=== PATIENT | female | born 1985 | race Caucasian/White ===

== ENCOUNTER 2017-10-06 14:57 | Emergency (ER) | payer SELFPAY ==
[2017-10-06 16:05] VITALS: BP 108/67
--- NOTE | 2017-10-06 16:17 | UC ---
Dental HPI - HPI Summary HPI Summary: Pt presents with fractured tooth. She tells me that she was eating a hard candy earlier today and she bit down on it on the left side of her mouth. She felt one of her lower teeth crack and had immediate pain. She called her dentist and they cannot see her until Wednesday 10/10. Has not been able to eat or drink due to pain. Has tried ibuprofen without relief. - History of Current Complaint Chief Complaint: UCDentalProblem Stated Complaint: DENTAL ISSUE Time Seen by Provider: 10/06/17 16:13 Hx Obtained From: Patient Hx Last Menstrual Period: last week Onset/Duration: Sudden Onset Severity: Severe Pain Intensity: 8 Pain Scale Used: 0-10 Numeric - Allergies/Home Medications Allergies/Adverse Reactions: Allergies Allergy/AdvReac Type Severity Reaction Status Date / Time No Known Allergies Allergy Verified 10/06/17 16:05 PMH/Surg Hx/FS Hx/Imm Hx Previously Healthy: Yes - Surgical History Surgical History: Yes Surgery Procedure, Year, and Place: right ear. Lasik eye surgery - Family History Known Family History: Positive: None - Social History Alcohol Use: None Substance Use Type: None Smoking Status (MU): Light Every Day Tobacco Smoker Type: eCigarettes Amount Used/How Often: 1 pack per day Length of Time of Smoking/Using Tobacco: since age 15 yo - Immunization History Most Recent Influenza Vaccination: unknown Review of Systems Constitutional: Negative Skin: Negative ENT: Dental Pain Respiratory: Negative Cardiovascular: Negative All Other Systems Reviewed And Are Negative: Yes Physical Exam Triage Information Reviewed: Yes Appearance: Well-Nourished, Pain Distress Vital Signs: Initial Vital Signs Temp 98.8 F 10/06/17 16:00 Pulse 100 10/06/17 16:00 Resp 18 10/06/17 16:00 BP 108/67 10/06/17 16:00 Pulse Ox 100 10/06/17 16:00 Vital Signs Reviewed: Yes ENT: Positive: Dental tenderness Dental: Positive: Percussion Tenderness @ - tooth 18, Dental Fracture @ - tooth 18. Negative: Gross Decay/Caries @, Abscess @, Cellulitis @, Bleeding Neck: Positive: Supple, Nontender, No Lymphadenopathy Respiratory: Positive: Chest non-tender, Lungs clear, Normal breath sounds, No respiratory distress, No accessory muscle use Cardiovascular: Positive: RRR, No Murmur, Pulses Normal Neurological: Positive: Alert Psychological: Positive: Age Appropriate Behavior Dental Complaint Course/Dx - Course Course Of Treatment: iSTOP checked and ok. Seeing dentist friday. Fractured tooth 18 - Differential Dx/Diagnosis Differential Diagnosis/Dx: Fractured Tooth Provider Diagnoses: Fractured tooth #18 Discharge - Discharge Plan Condition: Stable Disposition: HOME Prescriptions: HYDROcodone/ACETAMIN 5-325 MG* [Beaumont 5-325 TAB*] 1 tab PO Q12H PRN #8 tab MDD 2 PRN Reason: Pain Patient Education Materials: Acute Dental Trauma (ED) Forms: *Work Release Referrals: Monik Vick NP [Primary Care Provider] - Additional Instructions: If you develop a fever, SOB, chest pain, new or worsening symptoms - please call your PCP or go to the ED. Keep your appointment with dentist on wednesday 10/10
== END 2017-10-06 16:32 | disposition home or self-care (01) ==
LOC: UCCORT 14:57
DX: S02.5XXA Fracture of tooth (traumatic), initial encounter for closed fracture (principal); X58.XXXA Exposure to other specified factors, initial encounter; Y93.89 Activity, other specified; Y92.9 Unspecified place or not applicable; F17.210 Nicotine dependence, cigarettes, uncomplicated
CPT/HCPCS: 99212; G0463

== ENCOUNTER 2018-01-20 10:06 | Emergency (ER) | payer SELFPAY ==
[2018-01-20 10:53] VITALS: BP 101/73
--- NOTE | 2018-01-20 11:02 | UC ---
General HPI - HPI Summary HPI Summary: PT IS C/O BEING ILL FOR A WEEK. IT BEGAN WITH FLU TYPE SYMPTOMS AND INVOLVED SINUS CONGESTION, SORE THROAT AND CHEST CONGESTION. EVERYTHING SEEMED TO IMPROVE EXCEPT HER SINUSES. SHE HAS ONGOING SINUS CONGESTION AND NOW PAIN/ PRESSURE IN SINUSES WITH YELLOW DRAINAGE. PT ALSO C/O SNEEZING, WATERY EYES AND ADMITS TO SUBJECTIVE FEVER. SHE DENIES HX ALLERGIES AND ANY NEW EXPOSURES. - History of Current Complaint Chief Complaint: UCRespiratory Stated Complaint: FLU SYMPTOMS/SINUS Time Seen by Provider: 01/20/18 10:55 Hx Obtained From: Patient Hx Last Menstrual Period: 01/06/18 Onset/Duration: Gradual Onset Timing: Constant Pain Intensity: 7 Aggravating: NOTHING Alleviating: NOTHING Associated Signs & Symptoms: Positive: Cough. Negative: Headache - Allergy/Home Medications Allergies/Adverse Reactions: Allergies Allergy/AdvReac Type Severity Reaction Status Date / Time No Known Allergies Allergy Verified 01/20/18 10:47 Home Medications: Home Medications Equate Cold And Cough Q4H PRN 01/20/18 [History] PMH/Surg Hx/FS Hx/Imm Hx Previously Healthy: Yes - Surgical History Surgical History: Yes Surgery Procedure, Year, and Place: right ear. Lasik eye surgery - Family History Known Family History: Positive: None - Social History Occupation: Employed Full-time Alcohol Use: None Substance Use Type: None Smoking Status (MU): Heavy Every Day Tobacco Smoker Type: eCigarettes Amount Used/How Often: 1/2 pack per day Length of Time of Smoking/Using Tobacco: since age 15 yo - Immunization History Most Recent Influenza Vaccination: unknown Vaccination Up to Date: Yes Review of Systems Constitutional: Negative Skin: Negative Eyes: Negative ENT: Nasal Discharge, Sinus Congestion, Sinus Pain/Tenderness Respiratory: Cough Cardiovascular: Negative Gastrointestinal: Negative Genitourinary: Negative Motor: Negative Neurovascular: Negative Musculoskeletal: Negative Neurological: Headache Psychological: Negative Is Patient Immunocompromised?: No All Other Systems Reviewed And Are Negative: Yes Physical Exam Triage Information Reviewed: Yes Appearance: Well-Appearing Vital Signs: Initial Vital Signs Temp 99.1 F 01/20/18 10:48 Pulse 114 01/20/18 10:48 Resp 18 01/20/18 10:48 BP 101/73 01/20/18 10:48 Pulse Ox 100 01/20/18 10:48 Eyes: Positive: Conjunctiva Clear ENT: Positive: Pharynx normal, Nasal congestion, Nasal drainage - YELLOW, TMs normal, Sinus tenderness Neck: Positive: Supple, Nontender, No Lymphadenopathy Respiratory: Positive: Lungs clear, Normal breath sounds Cardiovascular: Positive: RRR, No Murmur Abdomen Description: Positive: Nontender, No Organomegaly, Soft Bowel Sounds: Positive: Present Musculoskeletal: Positive: ROM Intact Neurological: Positive: Alert Psychological: Positive: Age Appropriate Behavior Skin Exam: Normal Course/Dx - Course Course Of Treatment: ILL X 7 DAYS, WORSENING SINSU S/S'S, SUBJECTIVE FEVER, NO CURRENT DIARRHEA. WILL TX FOR PRESUMPTIVE BACTERIAL SINUSITIS. DOUBT ALLERGY COMPONENT BUT ILL ADD FLONASE TO BENEFIT SINUSES AND ANY POTENTIAL ALLERGY COMPONENT. - Differential Dx - Multi-Symptom Provider Diagnoses: SINUSITIS Discharge - Discharge Plan Condition: Stable Disposition: HOME Prescriptions: Amoxicillin/Clavulanate TAB* [Augmentin TAB 875*] 875 mg PO BID 10 Days #20 tab Fluticasone NASAL SPRAY 50MCG* [Flonase NASAL SPRAY 50MCG*] 2 spray BOTH NARES DAILY 14 Days #1 btl Patient Education Materials: Sinusitis (ED) Referrals: No Primary Care Phys,NOPCP [Primary Care Provider] - Additional Instructions: FOLLOW UP WITH YOUR DOCTOR AT THE [facility] IN 7-10 DAYS OR SOONER IF WORSE
== END 2018-01-20 11:11 | disposition home or self-care (01) ==
LOC: UCCORT 10:06
DX: J32.9 Chronic sinusitis, unspecified (principal); R05 Cough; F17.210 Nicotine dependence, cigarettes, uncomplicated
CPT/HCPCS: 99212; G0463

== ENCOUNTER 2018-06-20 16:51 | Emergency (ER) | payer SELFPAY ==
[2018-06-20 17:06] VITALS: BP 137/83
--- NOTE | 2018-06-20 17:30 | UC ---
Psychiatric Complaint HPI - HPI Summary HPI Summary: Patient is a 32 year old female , with past medical history significant for depression and recently started on Celexa 20 mg last week (prior to this she had been on depression medication and last was in 2013) who present today with worsening of anxiety. Pt is having anxiety this evening r/t her girlfriend not helping her move into an apt last night. She was not able to sleep or eat very well throughout the day. She feels her thoughts are racing. She denies any suicidal ideations. She is staying with her mom right now and moving to [place] tomorrow, initial plan was to move to [place] today. She is here without her mom but feels that she is able to drive and feels otherwise safe. She denies any thoughts or ideations of harming herself or anybody else. Denies any other associated symptoms. Denies any hallucinations. Denies any fever, chills, cough chest pain or shortness of breath . No diaphoresis. Denies any abdominal pain , nausea or vomiting , diarrhea or constipation. She has not taken any other medication and denies any use of drugs or alcohol - History Of Current Complaint Chief Complaint: UCGeneralIllness Stated Complaint: ANXIETY Time Seen by Provider: 06/20/18 17:22 Hx Obtained From: Patient Hx Last Menstrual Period: 06/13/18 ?: No - LMP ended 5 days ago - Allergies/Home Medications Allergies/Adverse Reactions: Allergies Allergy/AdvReac Type Severity Reaction Status Date / Time No Known Allergies Allergy Verified 06/20/18 17:06 Home Medications: Home Medications Citalopram TAB* [CeleXA TAB*] 20 mg PO DAILY 06/20/18 [History Confirmed ] PMH/Surg Hx/FS Hx/Imm Hx Previously Healthy: Yes Other Endocrine History: negative Other Cardiovascular History: negative Other Respiratory History: negative Other GI/ History: no Other Neurological History: negative Psychological History: Anxiety, Depression Other Psychological History: negative Other Cancer History: negative - Surgical History Surgical History: Yes Surgery Procedure, Year, and Place: right ear. Lasik eye surgery - Family History Known Family History: Positive: None - Social History Alcohol Use: None Substance Use Type: None Smoking Status (MU): Heavy Every Day Tobacco Smoker Type: eCigarettes Amount Used/How Often: 1/2 pack per day Length of Time of Smoking/Using Tobacco: since age 15 yo - Immunization History Most Recent Influenza Vaccination: unknown Vaccination Up to Date: Yes Review of Systems Constitutional: Negative Skin: Negative Eyes: Negative ENT: Negative Respiratory: Negative Cardiovascular: Palpitations Gastrointestinal: Negative Genitourinary: Negative Motor: Negative Neurovascular: Negative Musculoskeletal: Negative Neurological: Negative Psychological: Anxious, Other - Negative for any suicidal or homicidal ideations Is Patient Immunocompromised?: No All Other Systems Reviewed And Are Negative: Yes Physical Exam - Summary Physical Exam Summary: Physical Exam: Const: Appears well. No signs of apparent distress present. Alert and oriented x 3. Musculo: Walks with a normal gait. Head/Face: Atraumatic, normocephalic on inspection. Eyes: EOMI and PERRLA in both eyes. Conjunctivae clear. No discharge noted ENT: Hearing normal, TM normal appearing bilaterally . Respiratory: Respirations are unlabored. Lungs clear to auscultation bilaterally, no wheezing , rhonchi or rales noted . CVS: Regular rate and Rhythm, S1S2 normal , no murmurs identified. Extremities: Peripheral circulation is grossly normal. Pulses 2+ Abdomen : Soft non tender , nondistended , Bowel sounds present . No guarding , rebound tenderness or rigidity noted. Skin: No lesions or rash located on the upper extremities or on the lower extremities. Neuro: Cranial nerves II to XII intact, motor and sensory intact. DTR Intact bilaterally. Mood is normal. Affect is normal. Triage Information Reviewed: Yes Appearance: Well-Appearing Vital Signs: Initial Vital Signs Temp 98.6 F 06/20/18 17:03 Pulse 95 06/20/18 17:03 Resp 18 06/20/18 17:03 BP 137/83 06/20/18 17:03 Pulse Ox 99 06/20/18 17:03 Vital Signs Reviewed: Yes Psych Complaint Course/Dx - Course Course Of Treatment: During the visit today, we discussed the findings and further plan. Since she is driving by herself we deferred to try any benzodiazepine for anxiety in the urgent care .I will prescribe the medication to the pharmacy to be taken at night before bed . I advised her to return to the ER or call 911 if her symptoms get worse or she develops any suicidal or homicidal ideations. She feels safe going home , will take her medication from the pharmacy and stay with her mom joyce. She will going to [place] tomorrow and will follow up with a psychiatrist/primary care physician over there next week. Patient expressed understanding . - Differential Dx/Diagnosis Provider Diagnoses: Anxiety Discharge - Sign-Out/Discharge Documenting (check all that apply): Patient Departure - Discharge Plan Condition: Stable Disposition: HOME Prescriptions: LORazepam TAB(*) [Ativan 1 MG TAB (*)] 1 mg PO BEDTIME PRN 2 Days #2 tab MDD 1 tab PRN Reason: Anxiety Patient Education Materials: Anxiety (ED) Referrals: [facility] [Outside] Additional Instructions: Please start taking the medication as prescribed to the pharmacy . Follow up with primary care doctor in 2 days. Return to Urgent care / ER if symptoms get worse. Please immediately call 911 if your symptoms worsen or you have any suicidal ideations. - Billing Disposition and Condition Condition: STABLE Disposition: Home
== END 2018-06-20 17:47 | disposition home or self-care (01) ==
LOC: UCCORT 16:51
DX: F41.9 Anxiety disorder, unspecified (principal); F17.210 Nicotine dependence, cigarettes, uncomplicated
CPT/HCPCS: 99212; G0463

== ENCOUNTER 2019-07-21 18:06 | Emergency (ER) | payer BC ==
[2019-07-21 19:06] VITALS: BP 111/69
--- NOTE | 2019-07-21 19:18 | UC ---
UC General HPI - HPI Summary HPI Summary: PT IS C/O SNEEZING, ITCHY-WATERY EYES, SINUS PAIN WITH PRESSURE AND CONGESTION FOR 6 DAYS. SHE ALSO NOTES HER NECK IS FEELING A LITTLE SORE. SHE TAKES BENADRYL EACH NIGHT FOR SLEEP WHICH SEEMS TO HELP. NO FEVER OR BLOODY PURULENT DISCHARGE. - History of Current Complaint Chief Complaint: UCGeneralIllness Stated Complaint: SINUS Time Seen by Provider: 07/21/19 18:54 Hx Obtained From: Patient Hx Last Menstrual Period: 07/05/19 Onset/Duration: Gradual Onset Timing: Constant Pain Intensity: 7 Associated Signs & Symptoms: Negative: Headache - Allergy/Home Medications Allergies/Adverse Reactions: Allergies Allergy/AdvReac Type Severity Reaction Status Date / Time No Known Allergies Allergy Verified 07/21/19 19:06 Home Medications: Home Medications NK [No Home Medications Reported] 07/21/19 [History Confirmed 07/21/19] PMH/Surg Hx/FS Hx/Imm Hx Previously Healthy: Yes - Surgical History Surgical History: Yes Surgery Procedure, Year, and Place: right ear. Lasik eye surgery - Family History Known Family History: Positive: None - Social History Alcohol Use: None Substance Use Type: None Smoking Status (MU): Former Smoker Type: eCigarettes Amount Used/How Often: 1/2 pack per day Length of Time of Smoking/Using Tobacco: since age 15 yo When Did the Patient Quit Smoking/Using Tobacco: 05/21/2018 - Immunization History Most Recent Influenza Vaccination: unknown Vaccination Up to Date: Yes Review of Systems All Other Systems Reviewed And Are Negative: No Constitutional: Negative: Fever Eyes: Negative: Drainage ENT: Positive: Sinus Congestion. Negative: Sore Throat Respiratory: Negative: Shortness Of Breath, Cough Neurological: Negative: Headache Physical Exam Triage Information Reviewed: Yes Appearance: Well-Appearing Vital Signs: Initial Vital Signs Temp 99.4 F 07/21/19 19:01 Pulse 92 07/21/19 19:01 Resp 16 07/21/19 19:01 BP 111/69 07/21/19 19:01 Pulse Ox 100 07/21/19 19:01 Vital Signs Reviewed: Yes Eyes: Positive: Conjunctiva Clear ENT: Positive: Pharynx normal, TMs normal. Negative: Nasal drainage Neck: Positive: Supple, Nontender, No Lymphadenopathy Respiratory: Positive: Lungs clear, Normal breath sounds, No respiratory distress Cardiovascular: Positive: RRR, No Murmur Abdomen Description: Positive: Nontender Musculoskeletal: Positive: ROM Intact Neurological: Positive: Alert Psychological: Positive: Age Appropriate Behavior Skin Exam: Normal Course/Dx - Differential Dx - Multi-Symptom Differential Diagnoses: Other - S/S'S SUGGEST ALLERGY. WILL TX OTC ANTIHISTAMINE PLUS DECONGESTANT. PT HAS F/U PCP ON 07/26/19. - Diagnoses Provider Diagnosis: Allergies Discharge ED - Sign-Out/Discharge Documenting (check all that apply): Patient Departure All imaging exams completed and their final reports reviewed: No Studies - Discharge Plan Condition: Stable Disposition: HOME Patient Education Materials: Allergies (ED) Referrals: Shaan Granados MD [Primary Care Provider] - 07/26/19 Additional Instructions: TAKE A CLARITIN-D OR ZYRTEC-D DAILY PER LABEL. - Billing Disposition and Condition Condition: STABLE Disposition: Home
== END 2019-07-21 19:29 | disposition home or self-care (01) ==
LOC: UCCORT 18:06
DX: J30.2 Other seasonal allergic rhinitis (principal); Z87.891 Personal history of nicotine dependence
CPT/HCPCS: 99211; G0463

== ENCOUNTER 2019-08-29 14:59 | Emergency (ER) | payer BC ==
--- OUTSIDE RECORDS SUMMARY | 2019-08-29 16:03 | XMS REPORT | Continuity of Care Document ---
:1985 External Reference #:[id number] Author Name Asuncion Carty NP Address [address] [place] [address] Care Team Providers Name Role Phone Estee Crystal M.D. 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 Problems Description No Information Available Social History Type Date Description Comments Sex Unknown Tobacco Use Start: Unknown Denies Tobacco Use Tobacco Use Start: Unknown End: Former Cigarette Smoker Quit 1 year ago Unknown 1ppd, 17 pack year history ETOH Use Never used alcohol Recreational Drug Use Never Used Drugs Exercise Type/Frequency Exercises regularly walking, active with kid, active work Guns in Home No Smoke Alarms Yes Smoke Alarms Carbon Monoxide Detector: Yes Allergies, Adverse Reactions, Alerts Active Allergies Reaction Severity Comments Date Seasonal 08/19/2019 Medications Description No Active Medications Immunizations Description No Information Available Vital Signs Date Vital Result Comment 08/19/2019 2:46pm BP Systolic 100 mmHg BP Diastolic 68 mmHg Heart Rate 92 /min Body Temperature 97.9 F Respiratory Rate 16 /min Height 65 inches 5'5" Weight 143.00 lb BMI (Body Mass Index) 23.8 kg/m2 Results Description No Information Available Procedures Description No Information Available Medical Devices Description No Information Available Encounters Description No Information Available Assessments Date Code Description Provider 08/19/2019 Z00.00 Encounter for general adult medical Asuncion Carty NP examination without abnormal findings Plan of Treatment Future Appointment(s):08/28/2019 9:15 am - Estee Crystal M.D. at [id number] - Asuncion Carty NPZ00.00 Encounter for general adult medical examination without abnormal findingsNew Labs:CBC Electronic ([facility] New), Ordered : 08/19/19CCS-Lipid Profile ([facility]) Female, Ordered: 08/19/19Comp Metabolic-ALL Lab Compani, Ordered: 08/19/19HIV 1&2 Antibody Screen ([facility]), Ordered: TSH ([facility]), Ordered: 08/19/19Comments:You are in excellent general health. I recommend regular physical exams with attention to good nutrition and exercise, eye exams every other year, and dental exams twice yearly. Goals: 2 fresh fruits daily3 helpings of fresh green and multicolored vegetablesEat from the whole color spectrum. 40-60 Oz water dailyMOVE YOUR BODY. Bodies were made to be moved. exercise 30 minutes at least 4-5 times weeklyAllNew Medication:No Active Medications -Comments:1. Patient has been queried about patient's goals/preferences and functional/lifestyle goals at relevant visits. If relevant, describe: Has been discussed, noted above2. Treatment goals as explainedto the patient: see above3. Are there barriers to meeting treatment goals? Yes If Yes, please describe: Barriers include possible insurance limits, disease process, and difficulty with lifestyle changes4. Self- Management goals as described to the patient: Yes, see above As always, we strongly encourage a healthy diet and making physical activity a part of your every day life. If you have questions about how or where to start, please contact the office. Functional Status Description No Information Available Mental Status Description No Information Available Referrals Description No Information Available
[2019-08-29 16:10] VITALS: BP 115/73
--- NOTE | 2019-08-29 16:23 | UC ---
Ear Complaint HPI - HPI Summary HPI Summary: Pt presents with c/p bilateral ear ache X 1 week. Pt has seasonal allergies and has not been taking antihistamine. Pt states that both of her ears feel "full" and are painful. Denies fever. - History of Current Complaint Chief Complaint: UCEar Stated Complaint: BILATERAL EAR COMPLAINT Time Seen by Provider: 08/29/19 16:11 Hx Obtained From: Patient Hx Last Menstrual Period: 08/29/19 ?: No Onset/Duration: Gradual Onset, Lasting Days, Still Present Severity Initially: Mild Severity Currently: Moderate Pain Intensity: 7 Associated Signs/Symptoms: Positive: Hearing Loss, URI Symptoms Related History: Seasonal Allergies - Allergies/Home Medications Allergies/Adverse Reactions: Allergies Allergy/AdvReac Type Severity Reaction Status Date / Time No Known Allergies Allergy Verified 08/29/19 16:10 PMH/Surg Hx/FS Hx/Imm Hx Previously Healthy: Yes - Surgical History Surgical History: Yes Surgery Procedure, Year, and Place: right ear. Lasik eye surgery - Family History Known Family History: Positive: Cardiac Disease - Social History Occupation: Employed Full-time Lives: With Family Alcohol Use: None Substance Use Type: None Smoking Status (MU): Former Smoker Type: eCigarettes Amount Used/How Often: 1/2 pack per day Length of Time of Smoking/Using Tobacco: since age 15 yo Have You Smoked in the Last Year: Yes When Did the Patient Quit Smoking/Using Tobacco: 05/21/2018 - Immunization History Most Recent Influenza Vaccination: unknown Vaccination Up to Date: Yes Review of Systems All Other Systems Reviewed And Are Negative: Yes Constitutional: Positive: Negative Skin: Positive: Negative Eyes: Positive: Negative ENT: Positive: Ear Ache, Sinus Congestion Respiratory: Positive: Negative Cardiovascular: Positive: Negative Gastrointestinal: Positive: Negative Genitourinary: Positive: Negative Motor: Positive: Negative Neurovascular: Positive: Negative Musculoskeletal: Positive: Negative Neurological: Positive: Negative Psychological: Positive: Negative Is Patient Immunocompromised?: No Physical Exam Triage Information Reviewed: Yes Appearance: Well-Appearing Vital Signs: Initial Vital Signs Temp 98.6 F 08/29/19 16:07 Pulse 78 08/29/19 16:07 Resp 15 08/29/19 16:07 BP 115/73 08/29/19 16:07 Pulse Ox 100 08/29/19 16:07 Vital Signs Reviewed: Yes Eye Exam: Normal ENT: Positive: Nasal congestion, TM bulging - bilateral TM's Dental Exam: Normal Neck exam: Normal Respiratory Exam: Normal Cardiovascular Exam: Normal Musculoskeletal Exam: Normal Neurological Exam: Normal Psychological Exam: Normal Skin Exam: Normal Ear Complaint Course/Dx - Differential Dx/Diagnosis Differential Diagnosis/HQI/PQRI: Otitis Media, URI Provider Diagnosis: Ear ache, Seasonal allergies Discharge ED - Sign-Out/Discharge Documenting (check all that apply): Patient Departure All imaging exams completed and their final reports reviewed: No Studies - Discharge Plan Condition: Stable Disposition: HOME Prescriptions: Loratadine/Pseudoephedrine [Claritin-D 24 Hour Tablet] 1 each PO DAILY #10 tab.er.24h Patient Education Materials: Allergies (ED), Earache (ED) Referrals: Shaan Granados MD [Primary Care Provider] - If Needed - Billing Disposition and Condition Condition: STABLE Disposition: Home - Attestation Statements Provider Attestation: Per institutional requirements, I have reviewed the chart, however, I was not consulted specifically or made aware of this patient by the midlevel provider. I did not personally evaluate, interact with , or disposition this patient.
== END 2019-08-29 16:30 | disposition home or self-care (01) ==
LOC: UCCORT 14:59
DX: H92.03 Otalgia, bilateral (principal); J30.2 Other seasonal allergic rhinitis; Z87.891 Personal history of nicotine dependence
CPT/HCPCS: 99212; G0463

== ENCOUNTER 2019-09-25 09:25 | Emergency (ER) | payer BC ==
[2019-09-25 10:37] VITALS: BP 119/75
--- NOTE | 2019-09-25 10:55 | UC ---
Ear Complaint HPI - HPI Summary HPI Summary: Pt c/o bilateral ear pain with left worse than right. Pt reports URI like symptoms X " a few weeks" . Pt states ear pain is worse after standing out side in cold for long periods of time - History of Current Complaint Chief Complaint: UCEar Stated Complaint: BILATERAL EAR COMPLAINT Time Seen by Provider: 09/25/19 10:26 Hx Obtained From: Patient Hx Last Menstrual Period: 09/22/19 ?: No Onset/Duration: Gradual Onset Severity Initially: Moderate Severity Currently: Moderate Pain Intensity: 7 Associated Signs/Symptoms: Positive: URI Symptoms - Allergies/Home Medications Allergies/Adverse Reactions: Allergies Allergy/AdvReac Type Severity Reaction Status Date / Time No Known Allergies Allergy Verified 09/25/19 10:29 Home Medications: Home Medications Acetaminophen [Acetaminophen Extra Strength] 1,000 mg PO PRN 09/25/19 [History] Citalopram TAB* [Celexa TAB*] 30 mg PO DAILY 09/25/19 [History Confirmed ] PMH/Surg Hx/FS Hx/Imm Hx Previously Healthy: Yes - Surgical History Surgical History: Yes Surgery Procedure, Year, and Place: right ear. Lasik eye surgery - Family History Known Family History: Positive: None, Cardiac Disease - Social History Occupation: Employed Full-time Lives: With Family Alcohol Use: None Substance Use Type: None Smoking Status (MU): Former Smoker Type: eCigarettes Amount Used/How Often: 1/2 pack per day Length of Time of Smoking/Using Tobacco: since age 15 yo Have You Smoked in the Last Year: Yes When Did the Patient Quit Smoking/Using Tobacco: 05/21/2018 - Immunization History Most Recent Influenza Vaccination: unknown Vaccination Up to Date: Yes Review of Systems All Other Systems Reviewed And Are Negative: Yes Constitutional: Positive: Chills Skin: Positive: Negative Eyes: Positive: Negative ENT: Positive: Ear Ache Respiratory: Positive: Negative Cardiovascular: Positive: Negative Gastrointestinal: Positive: Negative Genitourinary: Positive: Negative Motor: Positive: Negative Neurovascular: Positive: Negative Musculoskeletal: Positive: Negative Neurological: Positive: Negative Psychological: Positive: Negative Is Patient Immunocompromised?: No Physical Exam Triage Information Reviewed: Yes Appearance: Well-Appearing Vital Signs: Initial Vital Signs Temp 98 F 09/25/19 10:31 Pulse 78 09/25/19 10:31 Resp 16 09/25/19 10:31 BP 119/75 09/25/19 10:31 Pulse Ox 99 09/25/19 10:31 Vital Signs Reviewed: Yes Eye Exam: Normal ENT: Positive: TM bulging - bilateral; left > than right Dental Exam: Normal Neck exam: Normal Respiratory Exam: Normal Respiratory: Positive: No respiratory distress Musculoskeletal Exam: Normal Neurological Exam: Normal Psychological Exam: Normal Skin Exam: Normal Ear Complaint Course/Dx - Differential Dx/Diagnosis Differential Diagnosis/HQI/PQRI: Otitis Media, URI Provider Diagnosis: Ear ache, Acute serous otitis media of both ears without rupture Discharge ED - Sign-Out/Discharge Documenting (check all that apply): Patient Departure All imaging exams completed and their final reports reviewed: No Studies - Discharge Plan Condition: Stable Disposition: HOME Patient Education Materials: Earache (ED) Referrals: Shaan Granados MD [Primary Care Provider] - If Needed - Billing Disposition and Condition Condition: STABLE Disposition: Home
== END 2019-09-25 11:02 | disposition home or self-care (01) ==
LOC: UCCORT 09:25
DX: H65.03 Acute serous otitis media, bilateral (principal); H92.03 Otalgia, bilateral; Z87.891 Personal history of nicotine dependence
CPT/HCPCS: 99211; G0463

== ENCOUNTER 2020-01-31 15:54 | Emergency (ER) | payer BC ==
--- NOTE | 2020-01-31 16:29 | UC ---
Throat Pain/Nasal Loco HPI - HPI Summary HPI Summary: Pt presents with c/o nasal congestion, sinus pressure and pain X 2 weeks. Pt also c/o sudden onset of posterior head and neck pain that is intermittent. Pt denies fever, chills, or stiff neck. Pt denies recent injury. - History of Current Complaint Chief Complaint: UCRespiratory Stated Complaint: SINUS COMPLAINT, COUGH Time Seen by Provider: 01/31/20 16:10 Hx Obtained From: Patient Hx Last Menstrual Period: one month ?: No Onset/Duration: Gradual Onset, Lasting Weeks, Still Present Severity: Moderate Pain Intensity: 5 Cough: None Associated Signs & Symptoms: Positive: Sinus Discomfort Related History: Seasonal Allergies - Epiglottits Risk Factors Epiglottis Risk Factors: Sudden Onset - head ache - Allergies/Home Medications Allergies/Adverse Reactions: Allergies Allergy/AdvReac Type Severity Reaction Status Date / Time No Known Allergies Allergy Verified 01/31/20 16:01 Home Medications: Home Medications Citalopram TAB* [Celexa TAB*] 20 mg PO QPM 09/25/19 [History Confirmed 01/31/20] Amoxicillin PO (*) [Amoxicillin 875 MG (*)] 875 mg PO Q12H #20 tab 01/31/20 [Rx] Melatonin 5 mg PO QPM 01/31/20 [History Confirmed 01/31/20] Oxymetazoline 0.05% NASAL SPR* [Afrin 0.05% NASAL SPRAY*] 1 spray NASAL Q12H 4 Days #1 btl 01/31/20 [Rx] guaiFENesin [Mucinex] 600 mg PO Q12H #14 tab.er.12h 01/31/20 [Rx] PMH/Surg Hx/FS Hx/Imm Hx Previously Healthy: Yes - Surgical History Surgical History: Yes Surgery Procedure, Year, and Place: right ear. Lasik eye surgery - Family History Known Family History: Positive: Cardiac Disease - Social History Occupation: Employed Full-time Lives: With Family Alcohol Use: None Substance Use Type: None Smoking Status (MU): Former Smoker Type: eCigarettes Amount Used/How Often: 1/2 pack per day Length of Time of Smoking/Using Tobacco: since age 15 yo Have You Smoked in the Last Year: Yes When Did the Patient Quit Smoking/Using Tobacco: 05/21/2018 - Immunization History Most Recent Influenza Vaccination: unknown Vaccination Up to Date: Yes Review of Systems All Other Systems Reviewed And Are Negative: Yes Constitutional: Positive: Fatigue Skin: Positive: Negative Eyes: Positive: Negative ENT: Positive: Sinus Congestion, Sinus Pain/Tenderness Respiratory: Positive: Negative Cardiovascular: Positive: Negative Gastrointestinal: Positive: Negative Genitourinary: Positive: Negative Motor: Positive: Negative Neurovascular: Positive: Negative Musculoskeletal: Positive: Negative Neurological/Mental Status: Positive: Headache Psychological: Positive: Negative Is Patient Immunocompromised?: No Physical Exam Triage Information Reviewed: Yes Appearance: Well-Appearing Vital Signs Reviewed: Yes Eye Exam: Normal ENT: Positive: Nasal congestion, Sinus tenderness Dental Exam: Normal Neck exam: Normal Respiratory Exam: Normal Cardiovascular Exam: Normal Musculoskeletal Exam: Normal Neurological Exam: Normal Psychological Exam: Normal Skin Exam: Normal Throat Pain/Nasal Course/Dx - Differential Dx/Diagnosis Differential Diagnosis/HQI/PQRI: Influenza, Otitis Media, Sinusitis, URI Provider Diagnosis: Sinusitis Discharge ED - Sign-Out/Discharge Documenting (check all that apply): Patient Departure All imaging exams completed and their final reports reviewed: No Studies - Discharge Plan Condition: Stable Disposition: HOME Prescriptions: Amoxicillin PO (*) [Amoxicillin 875 MG (*)] 875 mg PO Q12H #20 tab guaiFENesin [Mucinex] 600 mg PO Q12H #14 tab.er.12h Oxymetazoline 0.05% NASAL SPR* [Afrin 0.05% NASAL SPRAY*] 1 spray NASAL Q12H 4 Days #1 btl Patient Education Materials: Sinusitis (ED) Referrals: Shaan Granados MD [Primary Care Provider] - If Needed - Billing Disposition and Condition Condition: STABLE Disposition: Home
[2020-01-31 16:33] VITALS: BP 107/69
== END 2020-01-31 16:46 | disposition home or self-care (01) ==
LOC: UCCORT 15:54
DX: J32.9 Chronic sinusitis, unspecified (principal); Z87.891 Personal history of nicotine dependence
CPT/HCPCS: 99212; G0463